=== PATIENT | female | born 1980 | race Caucasian/White ===

== ENCOUNTER 2022-04-12 07:36 | Inpatient (IN) ==
[2022-04-12] MEDS ORDERED: LIDOCAINE 1% LOCAL 20 ML VIAL INFIL PRN (07:39)
[2022-04-12] MEDS ORDERED: OXYTOCIN 30 UNITS/500 ML BAG IV PRN ×2 (07:39)
[2022-04-12] MEDS ORDERED: PENICILLIN G POTASSIUM 6 MU in DEXTROSE 5% 250 ML IV STA (07:53)
[2022-04-12 08:17] LABS: Hematocrit (blood only) 35.9 % (34.1-44.9); Hemoglobin 12.4 g/dl (12.0-16.0); Mean Corpuscular Hemoglobin 32.5 pg (25.0-34.0); Mean Corpuscular Hgb Conc 34.5 g/dL (32.0-36.0); Mean Platelet Volume 10.3 fL (9.4-12.3); Platelet Count 257 K/uL (130-400); RDW Coefficient of Variation 13.2 % (11.5-14.5); RDW Standard Deviation 45.1 fL (36.4-46.3); Red Blood Count 3.82 M/uL (3.93-5.22); White Blood Count 11.82 K/ul (4.8-10.8)
[2022-04-12] MEDS: LACTATED RINGER'S 1,000 ML IV PRN ×3 (09:53→19:18)
[2022-04-12] MEDS ORDERED: BUTORPHANOL TARTRATE 1 MG/ML VIAL IV PRN (12:19)
[2022-04-12] MEDS ORDERED: BUTORPHANOL TARTRATE 1 MG/ML VIAL ONE (12:41)
--- NOTE | 2022-04-12 12:53 | History & Physical Report ---
Date of Service April 12, 2022 Assessment & Plan (1) Encounter for induction of labor: Plan: ESTHER primvickie presents for IOL with unfavorable cervix at 40+ weeks. cervical balloon successfully placed and pitocin augmentation protocol initiated simultaneously epidural analgesia when requested anticipate vaginal Admission and Anticipated Discharge Date Admission Date: April 12, 2022 History of Present Illness Primary Care Provider: Wily Coker PA-C Patient is a 41 yo female EDC 04/10/22 who presents at 40w2d for IOL because of post term . The was complicated by AMA and IUGR which resolved by 36 week growth scan. Last EFW was 13%tile. testing has all been reassuring.GBS -positive. Allergies Allergy/AdvReac Type Severity Reaction Status Date / Time No Known Allergies Allergy Verified 04/11/22 15:35 Home Medications Medication Instructions Recorded Confirmed Type valacyclovir 500 mg tablet 500 mg PO DAILY #30 tabs 01/28/21 04/12/22 Rx (Valtrex) diphenhydramine HCl [Benadryl] 25 mg PO DAILY Sleep 08/31/21 04/12/22 History prenat.vits,donya,[id number] 1 tab PO DAILY 08/31/21 04/12/22 History ondansetron HCl 4 mg tablet 4 mg PO Q8H PRN nausea and 03/16/22 04/12/22 Rx vomiting #10 tabs Patient History Medical History (Updated 04/12/22 @ 12:51 by Emelia Hirsch MD, FACOG) Cold sore History of chicken pox Insomnia Status post elective Surgical History S/P dilatation and curettage S/P tonsillectomy and adenoidectomy Family History Grandmother (Maternal) Diabetes Denies family history of Ovarian cancer Breast cancer Colorectal cancer Social History (Updated 04/12/22 @ 07:50 by Vickie Johnson, RYAN) Smoking Status: Never smoker Hx Alcohol Use: No Hx Substance Use: No Preferred Language: Slovenian Communication Ability: Effective Casing Cleaner Required: No Beliefs That Will Affect Care: None marital status: marital status details: EUGENIA Alcocer (41) Current Living Situation: Spouse Current Living Situation Comment: lives with chayo, step daughter, dog current occupational status: employed 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[employer] Other Information That Helps Us Care for You: No Feels Safe at Home: Yes Safety Concerns: Feels Safe At This Time Childhood Exposure to Second-Hand Smoke: No Sunscreen Use: Yes Do you think of yourself as: straight/heterosexual Gender Identity: Female Assistive Devices: None Review of Systems All systems reviewed & are unremarkable except as noted in HPI & below Physical Exam Constitutional: WD/WN, vitals as above Psychiatric: A+Ox3, euthymic affect Genitourinary: OB Exam Abdomen: + vertex and + estimated weight (6-7 pounds) Manual OB Exam: + cervical dilation (closed), + cervical effacement 60% and + station (-3) OB Exam Monitor Tracing: + external FHT monitor used, + external uterine monitor used, + category I and + normal FHT variability cervical balloon placed under direct visualization and balloon instilled with 40 cc water. The catheter was then placed on tension and attached to her right thigh. she tolerated the procedure well. Results & Data ([facility]) Vital Signs (Past 12 Hours) Vital Signs Temp Pulse Resp BP 04/12/22 12:07 66 04/12/22 12:07 18 135/76 04/12/22 11:04 18 04/12/22 11:04 97.7 F 18 04/12/22 11:04 58 L 04/12/22 11:04 121/78 04/12/22 09:52 71 04/12/22 09:52 18 122/84 04/12/22 07:53 98.4 F 20 04/12/22 07:47 98.4 F 75 20 124/76 Coding Level of Care Code None Diagnoses Encounter for induction of labor Z34.90 CPT Codes Misx Procedure Codes - 92709 Placement of cervical dilator: 31567 Placement of cervical dilator ([id number])
[2022-04-12] MEDS: PENICILLIN G POTASSIUM 3 MU in DEXTROSE 5% 100 ML IV PRN ×2 (16:16→20:50)
--- NOTE | 2022-04-12 19:05 | Labor Progress Brief Note ---
Date of Service April 12, 2022 Subjective patient has been very uncomfortable since cervical balloon had been placed at 9 am this morning. She has had some relief with IV Stadol. Describes the pain has a sharp stabbing pain which coincides with contractions. Review of Systems All systems reviewed & are unremarkable except as noted in HPI & below Assessment & Plan (1) Encounter for induction of labor: Plan: will continue with pitocin induction plan to AROM when cervix is less posterior and epidural analgesia is effective. Admission and Anticipated Discharge Date Admission Date: April 12, 2022 Physical Exam Constitutional: WD/WN, vitals as above Psychiatric: A+Ox3, euthymic affect Genitourinary: OB Exam Abdomen: + regular contractions (Q 2minutes -mild to moderate) Manual OB Exam: + cervical dilation 2 cm, + cervical effacement 50% and + station -2 balloon prison delivered through the cervix. balloon removed after it is emptied of sterile water. exam after balloon removed is 2-3cm/50/-2 and now soft. Results & Data ([facility]) Vital Signs (Past 12 Hours) Vital Signs Temp Pulse Resp BP 04/12/22 17:40 18 04/12/22 17:40 18 04/12/22 17:40 68 04/12/22 17:40 139/81 04/12/22 16:51 18 04/12/22 16:51 18 04/12/22 16:51 68 04/12/22 16:51 124/76 04/12/22 16:03 18 04/12/22 16:03 18 04/12/22 16:03 71 04/12/22 16:03 118/74 04/12/22 14:48 20 04/12/22 14:48 98.4 F 20 04/12/22 14:48 71 04/12/22 14:48 118/71 04/12/22 13:56 18 04/12/22 13:56 18 04/12/22 13:57 69 04/12/22 13:57 115/76 04/12/22 12:45 18 04/12/22 12:45 18 04/12/22 12:45 67 04/12/22 12:45 113/71 04/12/22 12:07 66 04/12/22 12:07 18 135/76 04/12/22 11:04 18 04/12/22 11:04 97.7 F 18 04/12/22 11:04 58 L 04/12/22 11:04 121/78 04/12/22 09:52 71 04/12/22 09:52 18 122/84 04/12/22 07:53 98.4 F 20 04/12/22 07:47 98.4 F 75 20 124/76 Coding Level of Care Code None Diagnoses Encounter for induction of labor Z34.90
[2022-04-12] MEDS ORDERED: LIDOCAINE 2%/EPINEPHRINE 1:200,000 20 ML SDV ONE (19:09)
[2022-04-12] MEDS ORDERED: fentaNYL citrate 100 MCG/2 ML VIAL ONE (19:09)
[2022-04-12] MEDS ORDERED: BUPIVACAINE 0.25% 30 ML VIAL ONE (19:09)
[2022-04-12] MEDS ORDERED: SODIUM CHLORIDE 0.9% INJ 10 ML VIAL ONE (19:09)
[2022-04-12] MEDS ORDERED: ePHEDrine sulfate 50 MG/ML AMP ONE (19:09)
[2022-04-12] MEDS ORDERED: fentaNYL 2MCG/ML ROPIVACAINE 1.25MG/ML 100 ML BAG EPI ONE (19:10)
[2022-04-12] MEDS ORDERED: fentaNYL 2MCG/ML ROPIVACAINE 1.25MG/ML 100 ML BAG EPI PRN (19:21)
[2022-04-12] MEDS ORDERED: NALOXONE HCL 0.4 MG/1 ML VIAL/CARP IV PRN (19:21)
[2022-04-12] MEDS ORDERED: ONDANSETRON INJ 2 MG/ML 2 ML VIAL IV PRN (19:21)
[2022-04-12] MEDS ORDERED: NALOXONE HCL 1 MG in SODIUM CHLORIDE 0.9% 1000ML 1,000 ML IV PRN (19:21)
[2022-04-12] MEDS ORDERED: NALBUPHINE HCL INJ 10 MG/ML AMP IV PRN (19:21)
[2022-04-12] MEDS ORDERED: diphenhydrAMINE 50 MG/ML VIAL IV PRN (19:21)
[2022-04-12] MEDS ORDERED: ePHEDrine sulfate 50 MG/ML AMP IV PRN (19:21)
--- NOTE | 2022-04-12 19:23 | Anesthesiology Consultation ---
Date of Service April 12, 2022 Assessment & Plan Chart Review Chart Review: Patient NOT seen in Pre Admission Testing and Acceptable Risk for Labor Epidural Consults Requested none ASA ASA2 Proposed Anesthesia Anesthesia Type: Labor Epidural and CSE Risk / Benefits Reviewed With: PT / POA / Parent / Guardian, Accepts Plan and Informed Consent Obtained History Height/Weight Height: 5 ft 6 in Weight: 97.976 kg Allergies Allergy/AdvReac Type Severity Reaction Status Date / Time No Known Allergies Allergy Verified 04/11/22 15:35 Medications Home Medications Medication Instructions Recorded Confirmed Last Taken valacyclovir 500 mg tablet 500 mg PO DAILY #30 tabs 01/28/21 04/12/22 Unknown (Valtrex) diphenhydramine HCl [Benadryl] 25 mg PO DAILY Sleep 08/31/21 04/12/22 04/11/22 prenat.vits,donya,[id number]-[id number] 1 tab PO DAILY 08/31/21 04/12/22 02/10/22 09:00 ondansetron HCl 4 mg tablet 4 mg PO Q8H PRN nausea and 03/16/22 04/12/22 Unknown vomiting #10 tabs Active Medications Generic Name Dose Route Start Last Admin Trade Name Freq PRN Reason Stop Dose Admin Butorphanol Tartrate 1 mg 04/12/22 12:19 04/12/22 15:27 Butorphanol Tartrate 1 Mg/Ml Vial IV 05/12/22 12:18 1 mg Q2H PRN Administration Pain Oxytocin 30 units in 500 mls @ 10 mls/hr 04/12/22 07:39 04/12/22 19:01 Pitocin IV 04/14/22 07:38 0.6 units/hr .Q24H PRN 10 mls/hr Labor Induction/Augmentation Titration Protocol 0.6 UNITS/HR Lactated Ringer's 1,000 mls @ 125 mls/hr 04/12/22 07:39 04/12/22 19:18 Lr IV 04/14/22 07:38 999 mls/hr .Q8H PRN Administration L&D Protocol Protocol Penicillin G Potassium 3 mu/ 106 mls @ 100 mls/hr 04/12/22 10:42 04/12/22 16:16 Dextrose IV 04/22/22 10:41 100 mls/hr Q4H PRN Administration GBS(+) Until Delivery NPO Date Last Intake of Fluids: 04/12/22 Time Last Intake of Fluids: 17:00 Date Last Intake of Solids: 04/12/22 Time Last Intake of Solids: 06:00 Past Medical History Medical History Cold sore History of chicken pox Insomnia Status post elective Exercise / Class Metabolic Activity II 4-5 Yardwork/Stairs/Walk up hill Past Family History Family History Grandmother (Maternal) Diabetes Denies family history of Ovarian cancer Breast cancer Colorectal cancer Past Surgical History Surgical History S/P dilatation and curettage S/P tonsillectomy and adenoidectomy Past Anesthesia History No Hx of Anesthesia Complications and No Family Hx of Anesthesia Complications History of PONV No Hx of PONV and No Hx of Motion Sickness Social History Smoking Status: Never smoker Hx Alcohol Use: No Hx Substance Use: No substance use type: does not use Physical Exam Vital Signs Last Vital Signs Temp 36.6 C 04/12/22 19:15 Pulse 80 04/12/22 19:21 Resp 18 04/12/22 19:15 BP 125/83 04/12/22 19:15 Pulse Ox 100 04/12/22 19:21 ENMT Mouth: no TMJ abnormality Thyromental Distance: > or= 3.5 Finger Breadths Mallampati Class: II Neck normal visual inspection Respiratory normal respiratory effort Auscultation: lungs clear to auscultation bilaterally Cardiovascular Rate/Rhythm: regular rate and regular rhythm Musculoskeletal Spine: normal cervical ROM Neurologic moves all extremities Psychiatric Orientation: alert and oriented x 3 Testing Laboratory Results 04/12/22 07:52
[2022-04-12] MEDS ORDERED: FAMOTIDINE 10 MG TABLET PO ONE (20:30)
[2022-04-13] MEDS: PENICILLIN G POTASSIUM 3 MU in DEXTROSE 5% 100 ML IV PRN (00:40)
[2022-04-13] MEDS ORDERED: DIPHTHERIA/TETANUS/PERTUSSIS 0.5mL SYR/VIAL (Age 7+yrs) IM ONE (02:45)
[2022-04-13] MEDS ORDERED: BENZOCAINE 20% AER SPR 82.5 GM CAN EXT PRN (02:45)
[2022-04-13] MEDS ORDERED: OXYTOCIN 30 UNITS/500 ML BAG IV PRN (02:45)
[2022-04-13] MEDS ORDERED: HYDROCORTISONE ACETATE 25 MG SUPP PR PRN (02:45)
[2022-04-13] MEDS ORDERED: ACETAMINOPHEN 325 MG TAB PO PRN (02:45)
[2022-04-13] MEDS ORDERED: oxyCODONE/ACETAMINOPHEN 5mg/325mg TAB PO PRN (02:45)
--- NOTE | 2022-04-13 02:53 | Delivery Summary ---
Vaginal Delivery Summary Date of Service April 13, 2022 Vaginal Delivery Summary and 1st Degree LAC Patient is a 41-year-old G1, P0 female who was admitted for induction because of postterm . She had a cervical balloon placed and Pitocin augmentation of her contractions simultaneously. Membranes were ruptured for clear fluid after the cervical balloon had been expelled. She requested epidural analgesia which was effective. She progressed to full dilation and pushed effectively over intact perineum for delivery of a viable female infant. The cord was clamped and cut after 1 minute. The had poor respiratory effort despite stimulation and drying, and she was taken to the baby bed for further evaluation. She had good respiratory effort and was moving all 4 limbs. Placenta was expressed intact with a three-vessel cord after obtaining cord blood.A first-degree perineal laceration was repaired with 3-0 chromic in the usual fashion. Bilateral first degree labial lacerations were not bleeding and therefore not repaired. bleeding was controlled with dilute Pitocin and fundal massage. Estimated blood loss was 200 cc. Mother and were doing well after delivery. [facility] Vaginal Delivery Charge Delivery Type Details: and 1st Degree LAC
[2022-04-13] MEDS: IBUPROFEN 600 MG TAB PO PRN ×3 (05:19→23:43)
[2022-04-13] MEDS ORDERED: MEASLES, MUMPS & RUBELLA VIRUS VIAL SQ ONE (07:20)
--- NOTE | 2022-04-13 08:01 | Obstetrical Progress Note ---
Date of Service April 13, 2022 Assessment & Plan (1) Encounter for care and examination after delivery: satisfactory progress continue current care plan Subjective Ambulation: ambulating normally Voiding: no voiding problems Passing Gas:: Yes Diet Tolerance:: regular diet Feeding Type:: breast feeding Review of Systems All systems reviewed & are unremarkable except as noted in HPI & below Physical Exam Constitutional WD/WN, vitals as above Psychiatric A+Ox3, euthymic affect Genitourinary OB Exam Abdomen: + fundal height Fundus: + firm and + relation to umbilicus (at U) Results & Data ([facility]) Vital Signs (Past 12 Hours) Vital Signs Temp Pulse Pulse Resp BP BP Pulse Ox 04/13/22 05:15 98.1 F 71 18 117/75 04/13/22 03:35 18 04/13/22 04:35 71 18 111/62 04/13/22 04:20 86 120/70 04/13/22 04:05 86 18 117/70 04/13/22 03:50 83 124/74 04/13/22 03:35 76 112/67 04/13/22 03:20 71 114/67 04/13/22 03:05 18 04/13/22 03:05 187 H 18 120/70 04/13/22 02:50 81 18 117/66 04/13/22 02:35 98.4 F 85 18 127/61 04/13/22 02:26 84 98 04/13/22 02:21 82 96 04/13/22 02:20 78 129/66 04/13/22 02:16 103 H 82 L 04/13/22 02:14 88 93 04/13/22 02:11 90 99 04/13/22 02:07 92 H 91 04/13/22 02:06 82 123/72 100 04/13/22 02:01 97 H 100 04/13/22 01:20 98.4 F 04/13/22 01:56 92 H 100 04/13/22 01:52 88 109/58 L 04/13/22 01:51 89 100 04/13/22 01:49 115 H 92 04/13/22 01:46 95 H 100 04/13/22 01:41 96 H 100 04/13/22 01:38 105 H 80 L 04/13/22 01:37 83 128/72 04/13/22 01:36 95 H 100 04/13/22 01:31 116 H 100 04/13/22 01:26 101 H 100 04/13/22 01:21 78 101/57 L 100 04/13/22 01:16 85 100 04/13/22 01:11 82 100 04/13/22 01:06 80 04/13/22 01:06 80 100/56 L 100 04/13/22 01:01 81 100 04/13/22 00:56 87 100 04/13/22 00:51 82 121/73 100 04/13/22 00:46 82 100 04/13/22 00:41 96 H 100 04/13/22 00:36 86 04/13/22 00:36 90 118/64 100 04/13/22 00:31 84 100 04/13/22 00:26 82 100 04/13/22 00:21 72 125/79 98 04/13/22 00:20 68 126/79 04/13/22 00:16 75 100 04/13/22 00:11 73 98 04/13/22 00:06 73 121/74 99 04/13/22 00:01 73 97 04/12/22 23:56 98 04/12/22 23:56 74 04/12/22 23:52 74 04/12/22 23:52 120/73 04/12/22 23:51 99 04/12/22 23:51 74 04/12/22 23:46 98 04/12/22 23:46 73 04/12/22 23:41 98 04/12/22 23:41 73 04/12/22 23:36 98 04/12/22 23:36 69 04/12/22 23:36 117/70 04/12/22 23:31 99 04/12/22 23:31 71 04/12/22 23:26 100 04/12/22 23:26 77 04/12/22 23:22 74 04/12/22 23:22 128/72 04/12/22 23:21 99 04/12/22 23:21 77 04/12/22 23:16 98 04/12/22 23:16 76 04/12/22 23:11 98 04/12/22 23:11 76 04/12/22 23:09 93 04/12/22 23:09 79 04/12/22 23:06 98 04/12/22 23:05 74 04/12/22 23:06 79 04/12/22 23:05 114/71 04/12/22 23:02 98.6 F 04/12/22 23:01 99 04/12/22 23:01 76 04/12/22 22:56 99 04/12/22 22:56 93 H 04/12/22 22:51 98 04/12/22 22:51 68 04/12/22 22:51 115/66 04/12/22 22:46 98 04/12/22 22:46 70 04/12/22 22:41 98 04/12/22 22:41 72 04/12/22 22:36 98 04/12/22 22:36 67 04/12/22 22:36 116/70 04/12/22 22:31 99 04/12/22 22:31 68 04/12/22 22:29 94 04/12/22 22:29 71 04/12/22 22:26 97 04/12/22 22:26 69 04/12/22 22:21 98 04/12/22 22:21 69 04/12/22 22:20 72 04/12/22 22:20 111/65 04/12/22 22:16 96 04/12/22 22:16 73 04/12/22 22:11 94 04/12/22 22:11 74 04/12/22 22:06 98 04/12/22 22:06 68 04/12/22 22:06 108/63 04/12/22 22:01 96 04/12/22 22:01 70 04/12/22 21:56 99 04/12/22 21:56 70 04/12/22 21:51 71 04/12/22 21:51 107/61 04/12/22 21:51 99 04/12/22 21:51 73 04/12/22 21:46 98 04/12/22 21:46 72 04/12/22 21:41 99 04/12/22 21:41 82 04/12/22 21:36 98 04/12/22 21:35 66 04/12/22 21:36 66 04/12/22 21:35 112/62 04/12/22 21:31 97 04/12/22 21:31 69 04/12/22 21:26 97 04/12/22 21:26 69 04/12/22 21:00 97.9 F 04/12/22 21:21 98 04/12/22 21:21 69 04/12/22 21:21 115/68 04/12/22 21:16 98 04/12/22 21:16 70 04/12/22 21:11 98 04/12/22 21:11 68 04/12/22 21:06 93 04/12/22 21:06 75 04/12/22 21:06 127/69 04/12/22 21:05 94 04/12/22 21:05 79 04/12/22 21:01 97 04/12/22 21:01 67 04/12/22 20:56 97 04/12/22 20:56 66 04/12/22 20:51 97 04/12/22 20:51 65 04/12/22 20:51 109/69 04/12/22 20:46 97 04/12/22 20:46 70 04/12/22 20:41 98 04/12/22 20:41 73 04/12/22 20:36 97 04/12/22 20:36 74 04/12/22 20:36 110/64 04/12/22 20:31 98 04/12/22 20:31 81 04/12/22 20:26 100 04/12/22 20:26 108 H 04/12/22 20:21 100 04/12/22 20:20 76 04/12/22 20:21 79 04/12/22 20:20 102/55 L 04/12/22 20:16 100 04/12/22 20:16 82 04/12/22 20:11 100 04/12/22 20:11 99 H 04/12/22 20:06 100 04/12/22 20:06 82 04/12/22 20:05 83 04/12/22 20:05 108/55 L 04/12/22 20:01 100 04/12/22 20:01 89 04/12/22 19:59 81 04/12/22 19:59 117/65
--- NOTE | 2022-04-13 08:01 | Anesthesia Procedure Note ---
Date of Service April 13, 2022 Anesthesia Post Epidural Note Vital Signs Vital Signs: Temp Pulse Resp BP Pulse Ox 36.7 C 71 18 117/75 98 04/13/22 05:15 04/13/22 05:15 04/13/22 05:15 04/13/22 05:15 04/13/22 02:26 Notes Mental Status: alert / awake / arousable Nausea / Vomiting: adequately controlled Pain: adequately controlled Airway Patency, RR, SpO2: stable & adequate BP & HR: stable & adequate Hydration State: stable & adequate Neuraxial Anesthesia: was administered and sensory block is resolving Anesthetic Complications: no major complications apparent and Pt Satisfied with anesthetic care Epidural: Removed without complications and With tip intact
[2022-04-13] MEDS: PRENATAL VITAMIN 1 TAB PO SCH (09:51)
[2022-04-13] MEDS: DOCUSATE SODIUM 100 MG CAP PO SCH ×2 (09:51→19:42)
[2022-04-14 06:26] LABS: Hemoglobin 11.9 g/dl (12.0-16.0); Mean Corpuscular Hemoglobin 32.7 pg (25.0-34.0); Mean Corpuscular Volume 96.2 fL (80.0-100.0); Mean Platelet Volume 10.5 fL (9.4-12.4); Platelet Count 215 K/uL (130-400); RDW Coefficient of Variation 13.3 % (11.5-14.5); RDW Standard Deviation 47.2 fL (36.4-46.3); Red Blood Count 3.64 M/uL (4.20-5.40); White Blood Count 17.04 K/ul (4.8-10.8)
--- NOTE | 2022-04-14 07:41 | Obstetrical Progress Note ---
Date of Service April 14, 2022 Assessment & Plan (1) Encounter for care and examination after delivery: Patient ready for d/c home today, instructions reviewed. Subjective Ambulation: ambulating normally Voiding: no voiding problems Passing Gas:: Yes Diet Tolerance:: regular diet Lochia:: Small Feeding Type:: breast feeding (with bottle also) Physical Exam Constitutional WD/WN, vitals as above Eyes PERRL, conjunctivae normal, anicteric sclerae Neck normal visual inspection Respiratory normal respiratory effort and able to speak in complete sentences; no respiratory distress and no labored breathing Cardiovascular Rate/Rhythm: regular rate and regular rhythm Extremities: no edema Chest (Breasts) Chest: normal inspection of chest Gastrointestinal (Abdomen) Inspection/Auscultation: abdomen normal to inspection Soft, postgravid Psychiatric A+Ox3, euthymic affect Genitourinary OB Exam Abdomen: + fundal height Fundus: + firm and + relation to umbilicus (fundus just below umbilicus); not tender Results & Data ([facility]) Vital Signs (Past 12 Hours) Vital Signs Temp Pulse Resp BP 04/13/22 23:45 97.7 F 75 18 109/75
[2022-04-14] MEDS: IBUPROFEN 600 MG TAB PO PRN (07:58)
[2022-04-14] MEDS: DOCUSATE SODIUM 100 MG CAP PO SCH (07:58)
[2022-04-14] MEDS: PRENATAL VITAMIN 1 TAB PO SCH (07:58)
[2022-04-14] MEDS ORDERED: bisacodyL 5 MG TABEC PO SCH (20:00)
[2022-04-15] MEDS ORDERED: bisacodyL 10 MG SUPP PR PRN
== END 2022-04-14 11:50 | disposition home or self-care (01) | DRG 807 ==
LOC: 4S1 07:36 → 4E2 04-13 05:49